=== PATIENT | male | born 1995 | race Caucasian/White ===

== ENCOUNTER 2023-04-15 16:14 | Outpatient (OUT) | payer OTHER, SELFPAY ==
--- NOTE | 2023-04-15 16:22 | US_ITS ---
The [address] [address] Patient Name: HELADIO MONTES MRN: [id number] date: 1995 Sex: M Assigned Patient Location: [place] Current Patient Location: [place] Accession/Order Number: [id number] Exam Date: 04/15/2023 16:23 Report Date: 04/16/2023 06:39 At the request of: ALEXIS FRANCISCO Procedure: US soft tissue head and neck EXAM: US soft tissue head and neck HISTORY: Neck pain, M54.2 ; pain within upper anterior left neck COMPARISON: None. TECHNIQUE: Percutaneous ultrasound evaluation. FINDINGS: No mass, fluid collection, or abnormal appearing lymph nodes. IMPRESSION: 1. Unremarkable upper left neck in the area of concern. No suspicious findings to account for patient's symptoms. Electronically authenticated by: FELIX REYNA Date: 04/16/2023 06:39
== END 2023-04-15 16:15 ==
LOC: US 16:16
PROVIDERS: PCP Internal Medicine; Visit Provider Internal Medicine
DX: M54.2 Cervicalgia (principal)
CPT/HCPCS: 76536